=== PATIENT | female | born 1935 | race Caucasian/White ===

== ENCOUNTER 2019-01-20 00:25 | Emergency (ER) | payer MEDICARE, OTHER ==
[~2019-01-20] VITALS: Ht 170.2 cm; Wt 91.4 kg
[2019-01-20 00:50] VITALS: Ht 170.2 cm; Wt 91.4 kg
[2019-01-20] MEDS ORDERED: SOD CHLORIDE 0.9% 500 ML IV STA (02:22)
[2019-01-20] MEDS ORDERED: ONDANSETRON 4 MG INJ IV STA (02:22)
[2019-01-20] MEDS ORDERED: morphine 4 MG/ML VIAL IV STA (02:22)
[2019-01-20] MEDS ORDERED: ASPIRIN 325 MG TAB PO STA (03:47)
[2019-01-20] MEDS ORDERED: TRAM50TA PO (04:34)
[2019-01-20] MEDS ORDERED: IBUP200C11 PO (04:34)
--- NOTE | 2019-01-20 04:44 | ERD ---
ER Documentation Chief Complaint Chief Complaint BIB-RA x brittny sided SWAN today HPI This is a very pleasant 83-year female comes in by rescue with complaints of headache and neck pain that started earlier today. The symptoms are similar to previous episode the patient had a was diagnosed as a non-STEMI that required 3 stents. Pain is mild to moderate intensity no exacerbating relieving factors. Denies any other current issues. ROS All systems reviewed and are negative except as per history of present illness. Medications Home Meds Reported Medications Ibuprofen* (Advil*) 200 Mg Capsule, 200 MG PO Q6H PRN for PAIN, CAP 01/20/19 Tramadol Hcl* (Ultram*) 50 Mg Tablet, 50 MG PO Q6H PRN for PAIN, TAB 01/20/19 Allergies Allergies: Coded Allergies: No Known Allergy (Unverified , 01/20/19) PMhx/Soc History of Surgery: Yes (HERNIA SX, CARDIAC STENT X 3) Anesthesia Reaction: No Hx Neurological Disorder: No Hx Respiratory Disorders: No Hx Cardiac Disorders: Yes (HTN, IA ) Hx Psychiatric Problems: No Hx Miscellaneous Medical Probl: No Hx Alcohol Use: No Hx Substance Use: No Hx Tobacco Use: No Smoking Status: Never smoker Physical Exam Vitals Vital Signs Date Temp Pulse Resp B/P (MAP) Pulse Ox O2 O2 Flow FiO2 Time Delivery Rate 01/20/19 68 16 128/65 96 Room Air 04:15 (86) 01/20/19 97.6 76 14 157/76 99 Room Air 02:16 (103) 01/20/19 97.9 83 18 138/68 99 00:50 (91) Physical Exam Const: No acute distress Head: Atraumatic Eyes: Normal Conjunctiva ENT: Normal External Ears, Nose and Mouth. Neck: Full range of motion. No meningismus. Resp: Clear to auscultation bilaterally Cardio: Regular rate and rhythm, no murmurs Abd: Soft, non tender, non distended. Normal bowel sounds Skin: No petechiae or rashes Back: No midline or flank tenderness Ext: No cyanosis, or edema Neur: Awake and alert Psych: Normal Mood and Affect Result Diagram: 01/20/19 0245 01/20/19 0245 Results 24 hrs Laboratory Tests Test 01/20/19 02:45 White Blood Count 12.5 10^3/ul Red Blood Count 4.54 10^6/ul Hemoglobin 13.3 g/dl Hematocrit 40.6 % Mean Corpuscular Volume 89.4 fl Mean Corpuscular Hemoglobin 29.3 pg Mean Corpuscular Hemoglobin Concent 32.8 g/dl Red Cell Distribution Width 13.6 % Platelet Count 229 10^3/UL Mean Platelet Volume 10.1 fl Immature Granulocytes % 0.600 % Neutrophils % 71.5 % Lymphocytes % 20.3 % Monocytes % 6.2 % Eosinophils % 1.0 % Basophils % 0.4 % Nucleated Red Blood Cells % 0.0 /100WBC Immature Granulocytes # 0.070 10^3/ul Neutrophils # 8.9 10^3/ul Lymphocytes # 2.5 10^3/ul Monocytes # 0.8 10^3/ul Eosinophils # 0.1 10^3/ul Basophils # 0.1 10^3/ul Nucleated Red Blood Cells # 0.0 10^3/ul Prothrombin Time 12.0 Sec Prothrombin Time Ratio 0.9 INR International Normalized Ratio 0.88 Activated Partial Thromboplast Time 20.9 Sec Sodium Level 142 mmol/L Potassium Level 4.9 mmol/L Chloride Level 106 mmol/L Carbon Dioxide Level 25 mmol/L Anion Gap 11 Blood Urea Nitrogen 28 mg/dl Creatinine 0.98 mg/dl Est Glomerular Filtrat Rate mL/min mL/min Glucose Level 179 mg/dl Calcium Level 9.5 mg/dl Troponin I 2.300 ng/ml Current Medications Medications Dose Sig/Ana Rosa Start Time Status Last (Trade) Ordered Route PRN Stop Time Admin Dose Reason Admin Sodium 500 ml @ Q1H STAT 01/20/19 DC 01/20/19 Chloride 500 mls/hr IV 02:22 03:01 01/20/19 03:21 Ondansetron 4 mg ONCE STAT 01/20/19 DC 01/20/19 HCl (Zofran IV 02:22 03:02 Inj) 01/20/19 02:23 Morphine 4 mg ONCE STAT 01/20/19 DC 01/20/19 Sulfate IV 02:22 03:02 (morphine) 01/20/19 02:23 Aspirin 325 mg ONCE STAT 01/20/19 DC 01/20/19 (Aspirin) PO 03:47 04:04 01/20/19 03:48 Procedures/MDM EKG: Rate/Rhythm: [Normal Sinus Rhythm] QRS, ST, T-waves: [No changes consistent w/ acute ischemia] Impression: [No evidence of ischemia or arrhythmia] Chest X-ray 1V Interpreted by me: Soft Tissue: No acute abnormalities Bones: No acute abnormalities Mediastinum/Cardiac Silhouette/Lungs: [No acute abnormalities] Patient's symptoms are concerning for cardiac cause will require inpatient workup and continuous monitoring. Further w/u for ischemia, arrhythmia, PE or dissection will be deferred to the inpatient team. Patient has evidence of non-STEMI. 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 Patient will be signed out to oncoming physician Dr. Daniel pending transfer Departure Diagnosis: Primary Impression: Non-STEMI (non-ST elevated myocardial infarction) Condition: Serious JANE MARTINS Jan 20, 2019 04:44
[2019-01-20 06:30] VITALS: BP 132/67; PULSE 70; RESP 18
== END 2019-01-20 07:01 | disposition short-term general hospital (02) ==
LOC: E/R 00:25
DX: I21.3 ST elevation (STEMI) myocardial infarction of unspecified site (principal); I10 Essential (primary) hypertension; Z98.61 Coronary angioplasty status
CPT/HCPCS: 36415; 70450; 71045; 80048; 84484; 85025; 85610; 85730; 93005; 96374; 96375; 99285; J2270; J2405; J7040